=== PATIENT | male | born 1945 | race Caucasian/White ===

== ENCOUNTER 2017-05-15 10:06 | Emergency (ER) | payer OTHER | END 2017-05-15 11:47 | disposition home or self-care (01) | LOC: D.ER 10:06 | DX: S01.81XA Laceration without foreign body of other part of head, initial encounter (principal); W22.8XXA Striking against or struck by other objects, initial encounter; Y93.89 Activity, other specified; Y92.019 Unspecified place in single-family (private) house as the place of occurrence of the external cause; E11.9 Type 2 diabetes mellitus without complications; I10 Essential (primary) hypertension ==

== ENCOUNTER 2017-12-31 01:31 | Emergency (ER) | payer OTHER ==
[~2017-12-31] VITALS: Ht 180.3 cm; Wt 92.7 kg
[2017-12-31 01:41] VITALS: Ht 180.3 cm; Wt 92.7 kg
[2017-12-31] MEDS ORDERED: BAYER CHEWABLE81 MG (01:43)
[2017-12-31] MEDS ORDERED: COUMADIN1 MG (01:43)
[2017-12-31] MEDS ORDERED: PACERONE200 MG PO (01:43)
[2017-12-31] MEDS ORDERED: CELEXA20 MG (01:43)
[2017-12-31] MEDS ORDERED: LIPITOR20 MG PO (01:43)
[2017-12-31] MEDS ORDERED: LISINOPRIL10 MG PO (01:43)
[2017-12-31] MEDS ORDERED: OXYBUTYNIN15 MG/BOTT PO (01:44)
[2017-12-31] MEDS ORDERED: NORCO 7.5/325 T1 TA1 PO (02:53)
[2017-12-31 03:01] VITALS: BP 106/73
== END 2017-12-31 03:02 | disposition home or self-care (01) ==
LOC: D.ER 01:31
DX: R33.8 Other retention of urine (principal); G89.18 Other acute postprocedural pain; E11.9 Type 2 diabetes mellitus without complications; I48.91 Unspecified atrial fibrillation; Z79.01 Long term (current) use of anticoagulants; K21.9 Gastro-esophageal reflux disease without esophagitis